=== PATIENT | male | born 1995 | race African-American/Black ===

== ENCOUNTER 2020-03-02 00:47 | Inpatient (IN) | payer OTHER ==
[2020-03-02 01:42] LABS: #Lymphocytes 1.5 thou/uL (1.20-3.40); #Monocytes 0.7 thou/uL (0.11-0.59); #Neutrophils 5.2 thou/uL (1.40-6.50); %Basophils 0.6 % (0.0-1.0); %Eosinophils 0.5 % (0.0-10.0); %Monocytes 9.1 % (0.0-10.0); %Neutrophils 69.7 % (42.0-75.0); Hemoglobin 16.2 g/dL (14.0-18.0); Mean Corpuscular HGB CONC 34.1 g/dL (32.0-36.0); Mean Corpuscular Hemoglobin 27.8 pg (27.0-31.0); Mean Corpuscular Volume 81.5 fL (78.0-98.0); Mean Platelet Volume 10.9 fL (7.4-10.4); Platelet Count 206 thou/uL (130-400); RBC Distribution Width 12.4 % (11.5-14.5); Red Blood Cell (RBC) Count 5.83 mill/uL (4.70-6.10); White Blood Cell (WBC) Count 7.4 thou/uL (4.8-10.8)
[2020-03-02 02:03] LABS: ALT (SGPT) 11 U/L (8-55); AST (SGOT) 11 U/L (5-34); Albumin 4.3 g/dL (3.5-5.0); Alkaline Phosphatase 124 U/L (40-110); Anion Gap 26 mmol/L (10-20); BUN (Urea Nitrogen) 16 mg/dL (8.9-20.6); Calc. Creatinine Clearance 0 mL/min (70-130); Calcium 10.5 mg/dL (7.8-10.44); Carbon Dioxide 18 mmol/L (22-29); Chloride 96 mmol/L (98-107); Estimated GFR-MDRD 75; Globulin 4.5 g/dL (2.4-3.5); Glucose 361 mg/dL (70-105); Potassium 4.8 mmol/L (3.5-5.1); Protein, Total 8.8 g/dL (6.0-8.3); Sodium 135 mmol/L (136-145)
[2020-03-02 02:46] LABS: Magnesium 1.7 mg/dL (1.6-2.6)
[2020-03-02 04:23] LABS: Anion Gap 21 mmol/L (10-20); BUN (Urea Nitrogen) 15 mg/dL (8.9-20.6); Calc. Creatinine Clearance 0 mL/min (70-130); Calcium 8.9 mg/dL (7.8-10.44); Carbon Dioxide 16 mmol/L (22-29); Chloride 104 mmol/L (98-107); Estimated GFR-MDRD Greater than 90; Glucose 294 mg/dL (70-105); Potassium 4.5 mmol/L (3.5-5.1); Sodium 136 mmol/L (136-145)
[2020-03-02] MEDS ORDERED: Insulin Regular 300 UNITS/3 ML VIAL ONE (05:38)
[2020-03-02] MEDS ORDERED: Insulin Regular 100 units/100 ml in NS IVPB SCH (05:45)
[2020-03-02 06:00] LABS: Bacteria/HPF None Seen HPF (None Seen); Bilirubin Negative (Negative); Blood, Urine Negative (Negative); Clarity Clear (Clear); Glucose, Urine (Dipstick) Greater than 1000 mg/dL (Negative); Leukocyte 25 Leu/uL (Negative); Nitrite Negative (Negative); Protein, Urine (Dipstick) 50 mg/dL (Neg-Trace); RBC/HPF 0-3 HPF (0-3); Squamous Epithelial None Seen HPF (0-3); Urobilinogen Normal mg/dL (Less than 2)
[2020-03-02] MEDS ORDERED: Insulin Regular 300 UNITS/3 ML VIAL SC PRN (07:06)
[2020-03-02] MEDS ORDERED: Dextrose 50% Abboject 50 ML SYRINGE SLOW IVP PRN (07:06)
[2020-03-02] MEDS ORDERED: Dextrose 5% in Water 1,000 ML IV PRN (07:06)
[2020-03-02] MEDS ORDERED: Ondansetron ODT 4 MG TAB PO PRN (07:13)
[2020-03-02] MEDS ORDERED: Ondansetron PF 4 MG/2 ML Vial IVP PRN (07:13)
[2020-03-02] MEDS ORDERED: Acetaminophen 325 MG TAB PO PRN (07:13)
[2020-03-02] MEDS ORDERED: Calcium Carbonate 500 MG ChewTAB PO PRN (07:13)
[2020-03-02] MEDS ORDERED: Sodium Chloride 0.9% 1,000 ML IV SCH ×2 (07:15→08:30)
[2020-03-02] MEDS ORDERED: Insulin Glargine 10 UNITS in Pre-Filled Syringe 1 EACH SC SCH ×2 (07:15→21:00)
[2020-03-02] MEDS ORDERED: HumaLOG 300 UNITS/3 ML VIAL ONE (07:26)
[2020-03-02] MEDS ORDERED: Magnesium Sulfate 2 GM in Sodium Chloride 0.9% 100 ML IVPB SCH (07:30)
[2020-03-02] MEDS ORDERED: Magnesium 2 GM/50 ML 2 GM in Premix Bag 1 BAG IVPB SCH (07:30)
[2020-03-02 08:00] LABS: Hemoglobin A1c Greater than 14.0 % (4.0-6.0)
[2020-03-02 08:31] VITALS: BMI 20.7
[2020-03-02] MEDS: 1/2 NS w/KCL 20 mEq 1,000 ML IV SCH ×3 (11:52→20:26)
[2020-03-02] MEDS: Insulin Regular 300 UNITS/3 ML VIAL SC PRN ×2 (11:57→16:56)
--- NOTE | 2020-03-02 11:58 | HP ---
PRIMARY CARE PHYSICIAN: The patient is an inmate. CHIEF COMPLAINT: Abnormal blood sugar. HISTORY OF PRESENT ILLNESS: The patient is a 24-year-old male with diabetes mellitus type 1, presented to the emergency room with above complaints. The patient is has a long history of diabetes. He used to be on insulin Lantus sliding scale. The patient is currently incarcerated and has not been on insulin. He has been feeling generally weak with some nausea. He had a urinalysis done at the prison that was abnormal for which he was sent to the emergency room for evaluation. In the emergency room, his workup was consistent with diabetic ketoacidosis. He was started on IV fluids with insulin drip. PAST MEDICAL HISTORY: Diabetes mellitus type 1, diagnosed at the age of 15. PAST SURGICAL HISTORY: 1. Hernia surgery. 2. Tonsillectomy. 3. Testicular surgery. ALLERGIES: THE PATIENT IS ALLERGIC TO TORADOL. CURRENT HOME MEDICATIONS: The patient is currently not on any medications. He was started on Lantus yesterday. SOCIAL HISTORY: The patient currently smokes on and off. Denies any alcohol or drug use. FAMILY HISTORY: Negative for heart disease. REVIEW OF SYSTEMS: All other review of systems was reviewed and was found negative. PHYSICAL EXAMINATION: VITAL SIGNS: On ER arrival, temperature of 98.8, respirations of 18, pulse of 137 with a blood pressure of 139/100, repeat blood pressure was 106/62, O2 saturation of 97% on room air. GENERAL: A 24-year-old male in no apparent distress, feels generally weak. HEENT: Head, atraumatic and normocephalic. Sclerae anicteric. Dry mucous membrane. No oral lesion. NECK: Supple. No JVD. No carotid bruit. LUNGS: Clear to auscultation bilaterally. No wheezing, rales, or rhonchi. HEART: S1 and S2 present. Regular rate and rhythm. Tachycardic. No rubs or gallops. ABDOMEN: Soft. Bowel sounds present. No rebound or guarding. No costovertebral angle tenderness. EXTREMITIES: No edema or calf tenderness. NEUROLOGY: Grossly nonfocal. Moves all 4 extremities. PSYCHIATRY: Alert, awake, and oriented x3. LABORATORY FINDINGS: WBC 7.4 with hemoglobin 16.2. Chemistry showed sodium 135, potassium 4.8, chloride 96, bicarb 18, BUN 16, creatinine 1.43, blood sugar of 361. A1c greater than 14. Urinalysis showed 11 to 20 without any bacteria, nitrite negative. Ketone was 6.27. Telemetry monitoring by my review showed sinus tachycardia. IMPRESSION: 1. Diabetic ketoacidosis secondary to medication noncompliance. 2. Acute kidney injury secondary to dehydration. 3. Anion gap metabolic acidosis secondary to diabetic ketoacidosis. 4. Uncontrolled diabetes mellitus type 1 with A1c of greater than 14. 5. Hyponatremia. 6. Tobacco dependence. PLAN: The patient is currently on insulin drip, which will be transitioned to subcu insulin. We will start him on Lantus. We will start him on liquid diet which will be transitioned to regular once his nausea improves. IV hydration. We will monitor labs closely. Recheck ketones. The patient was extensively counseled on diabetes. The patient understands the above plan of care. Tobacco cessation was emphasized. Job ID: [id number] NINA
[2020-03-02] MEDS ORDERED: Nicotine 14 MG PATCH TD PRN (12:00)
[2020-03-02] MEDS: K-Phos Neutral 250 MG TAB PO SCH (16:59)
[2020-03-02 17:29] LABS: Anion Gap 14 mmol/L (10-20); BUN (Urea Nitrogen) 12 mg/dL (8.9-20.6); Calc. Creatinine Clearance 112 mL/min (70-130); Calcium 8.7 mg/dL (7.8-10.44); Carbon Dioxide 20 mmol/L (22-29); Chloride 102 mmol/L (98-107); Estimated GFR-MDRD Greater than 90; Glucose 301 mg/dL (70-105); Potassium 3.8 mmol/L (3.5-5.1); Sodium 132 mmol/L (136-145)
[2020-03-03] MEDS: 1/2 NS w/KCL 20 mEq 1,000 ML IV SCH (02:09)
[2020-03-03] MEDS: Insulin Regular 300 UNITS/3 ML VIAL SC PRN ×3 (04:15→11:35)
[2020-03-03 04:54] LABS: ALT (SGPT) 7 U/L (8-55); AST (SGOT) 10 U/L (5-34); Albumin 3.7 g/dL (3.5-5.0); Alkaline Phosphatase 97 U/L (40-110); Anion Gap 13 mmol/L (10-20); BUN (Urea Nitrogen) 8 mg/dL (8.9-20.6); Bilirubin, Total 0.5 mg/dL (0.2-1.2); Calc. Creatinine Clearance 114 mL/min (70-130); Calcium 9.1 mg/dL (7.8-10.44); Carbon Dioxide 25 mmol/L (22-29); Chloride 102 mmol/L (98-107); Estimated GFR-MDRD Greater than 90; Globulin 3.7 g/dL (2.4-3.5); Glucose 219 mg/dL (70-105); Magnesium 1.7 mg/dL (1.6-2.6); Phosphorus 2.4 mg/dL (2.3-4.7); Potassium 3.8 mmol/L (3.5-5.1); Protein, Total 7.4 g/dL (6.0-8.3); Sodium 136 mmol/L (136-145)
[2020-03-03] MEDS: K-Phos Neutral 250 MG TAB PO SCH (08:06)
[2020-03-03] MEDS ORDERED: 1/2 NS w/KCL 20 mEq 1,000 ML IV SCH (08:23)
[2020-03-03 08:43] VITALS: BP 118/68; TEMP 98.2
[2020-03-03] MEDS ORDERED: Insulin Glargine 15 UNITS in Pre-Filled Syringe 1 EACH SC SCH (09:00)
[2020-03-03] MEDS ORDERED: Insulin Glargine 10 UNITS in Pre-Filled Syringe 1 EACH SC SCH (21:00)
--- NOTE | 2020-03-04 12:47 | DIS ---
DATE OF ADMISSION: 03/02/2020 DATE OF DISCHARGE: 03/03/2020 DISCHARGE DISPOSITION: The patient is an inmate. DISCHARGE MEDICATIONS: Lantus 15 units in the morning and 10 units at night. The patient was seen and examined on the day of discharge. Denies any new complaints. No chest pain, shortness of breath, or palpitations reported. BRIEF HOSPITAL COURSE: The patient is a 24-year-old male with diabetes mellitus, type 1, presented to the emergency room with abnormal blood sugar. His workup was consistent with diabetic ketoacidosis. He was placed on insulin drip that was transitioned to subcutaneous insulin. His ketones on admission were 6.27 with anion gap of 26. He showed good improvement with IV fluids. Infectious workup was negative. He was advised to be compliant with Lantus insulin. Please note that the patient's condition significantly improved earlier than anticipated. FINAL DIAGNOSES: 1. Diabetic ketoacidosis secondary to medication noncompliance. 2. Acute kidney injury secondary to dehydration. His creatinine on admission was 1.43; at discharge, is 1.06. 3. Anion gap metabolic acidosis secondary to diabetic ketoacidosis. 4. Uncontrolled diabetes mellitus, type 1, with A1c of greater than 14. 5. Hyponatremia. 6. Tobacco dependence. The patient understands the above plan of care. Job ID: [id number]
== END 2020-03-03 12:15 | DRG 638 ==
LOC: ERS 00:47 → ERHOLD 05:55 → ONC 08:27
PROVIDERS: ADMIT Internal Medicine; ATTEND Internal Medicine
DX: E10.10 Type 1 diabetes mellitus with ketoacidosis without coma (principal); N17.9 Acute kidney failure, unspecified; E87.1 Hypo-osmolality and hyponatremia; F17.210 Nicotine dependence, cigarettes, uncomplicated; E86.0 Dehydration; Z79.4 Long term (current) use of insulin; Z91.14 Patient's other noncompliance with medication regimen; Z88.6 Allergy status to analgesic agent
CPT/HCPCS: 36415; 36416; 80053; 81003; 81015; 82010; 83036; 83735; 84100; 85025; 87086; 96361; 96365; 96376; J1815; J3475; J3480; J3490